=== PATIENT | female | born 1975 | race Caucasian/White ===

== ENCOUNTER 2017-09-07 10:59 | Emergency (ER) | payer MEDICAID, OTHER ==
[~2017-09-07] VITALS: Ht 167.6 cm; Wt 141.3 kg
[~2017-09-07 10:59] MED LIST: BIOT25005 PO; CETI-158 PO; CHRO1TAB6 PO; COCO1000 PO; FISH OIL OMEGA1 EACH PO; FLUT16SP NS; LEVO25TA4 PO; MULT1TAB9 PO; MV-M1TAB16 PO; SIMV10TA3 PO; VITA150T PO
[2017-09-07 11:09] VITALS: BP 144/97
== END 2017-09-07 13:26 | disposition home or self-care (01) ==
LOC: ED 13:20
DX: S06.0X0A Concussion without loss of consciousness, initial encounter (principal); S63.633A Sprain of interphalangeal joint of left middle finger, initial encounter; S63.635A Sprain of interphalangeal joint of left ring finger, initial encounter; I10 Essential (primary) hypertension; E78.00 Pure hypercholesterolemia, unspecified; Z91.013 Allergy to seafood; W01.0XXA Fall on same level from slipping, tripping and stumbling without subsequent striking against object, initial encounter; Y93.89 Activity, other specified; Y92.89 Other specified places as the place of occurrence of the external cause; Y99.9 Unspecified external cause status
CPT/HCPCS: 70450; 99284